=== PATIENT | female | born 1995 ===

== ENCOUNTER 2019-09-05 14:13 | Emergency (ER) | payer SELFPAY ==
[2019-09-05 14:14] VITALS: BP 128/78; PULSE 106; RESP 18; TEMP 36.6; O2SAT 97; BMI 33.6
--- NOTE | 2019-09-05 14:46 | ED.RN ---
pt arrives with a friend for detox. pt states they want to go thru it at the same time. rules explained to pt regarding cell phones,visitors ect. pt reminded that she would not be allowed to visit her friend nor him her. pt decides she does not want to be seen
== END 2019-09-05 14:51 | disposition left against medical advice (07) ==
LOC: ED 14:27
PROVIDERS: Emergency Provider Emergency Medicine
DX: R69 Illness, unspecified (principal); Z53.21 Procedure and treatment not carried out due to patient leaving prior to being seen by health care provider